=== PATIENT | female | born 2000 | race Caucasian/White ===

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

== ENCOUNTER → 2021-01-26 | Outpatient (CLI) | payer BC ==
--- NOTE | 2021-01-26 16:06 | RAD ---
EXAM: Pelvic sonogram. HISTORY: Pain. TECHNIQUE: Sonographic imaging of the pelvis was performed. COMPARISON: None. FINDINGS: The uterus measures 8.1 x 3.9 x 2.6 cm. The endometrial stripe measures 5 mm in thickness. The ovaries are normal in size and demonstrate normal blood flow. There is no pelvic free fluid. The bladder is unremarkable. IMPRESSION: Unremarkable pelvic sonogram. Electronically signed by: Emmanuelle Barbosa MD (01/26/2021 4:04 PM) [id number]
== END ==
LOC: US 15:37
PROVIDERS: ATTEND Nurse Practitioner Gerontology
DX: R10.2 Pelvic and perineal pain (principal)
CPT/HCPCS: 76856